=== PATIENT | male | born 1960 | race Two or more races ===

== ENCOUNTER 2021-03-25 04:55 | Day surgery (SDC) | payer BC ==
[2021-03-19 16:34] VITALS: BMI 21.4
[2021-03-25 09:46] VITALS: TEMP 97.1
[2021-03-25 10:31] VITALS: BP 144/84; PULSE 49
== END 2021-03-25 10:36 | disposition home or self-care (01) ==
LOC: JASU-ENDO 04:55 → EDSEX 10:00 → JASU-ENDO 10:36
PROVIDERS: ATTEND Internal Medicine Gastroenterology
PROC: 0DBL8ZX Excision of Transverse Colon, Via Natural or Artificial Opening Endoscopic, Diagnostic (ICD-10-PCS; principal; 2021-03-25 09:00)
DX: Z12.11 Encounter for screening for malignant neoplasm of colon (principal); D12.3 Benign neoplasm of transverse colon; K64.8 Other hemorrhoids
CPT/HCPCS: 88305-TC

== ENCOUNTER 2022-09-21 16:39 | Emergency (ER) | payer BC ==
[2022-09-21 16:59] VITALS: BP 167/84; PULSE 67; RESP 16; TEMP 98.1; BMI 21.4
== END 2022-09-21 18:22 | disposition home or self-care (01) ==
LOC: JER 16:39
DX: S00.03XA Contusion of scalp, initial encounter (principal); W01.198A Fall on same level from slipping, tripping and stumbling with subsequent striking against other object, initial encounter
CPT/HCPCS: 70450-TC; 99284-25